=== PATIENT | female | born 1980 | race Caucasian/White ===

== ENCOUNTER 2024-03-27 05:23 | Emergency (ER) | payer MEDICAID, SELFPAY ==
[2024-03-27 05:23] VITALS: BMI 22.6
[2024-03-27 05:45] VITALS: BP 135/86; PULSE 97; RESP 18; TEMP 36.8; O2SAT 100
--- NOTE | 2024-03-27 06:16 | EDNOTE_ITS ---
Upper Respiratory Inf. RME/HPI General Chief Complaint: Flu Like Symptoms Stated Complaint: COUGHING Time Seen by Provider: 03/27/24 05:27 Arrival date/time: 03/27/24 05:23 43-year-old female presents the emergency department complains of cough, congestion and yellow phlegm ongoing for the last 2 days patient reports no chest pain or shortness of breath patient ports no headache dizziness weakness Limitations: no limitations Related Data Previous Rx's ?Medication ?Instructions ?Recorded ibuprofen 600 mg tablet 600 mg PO TID #20 tabs 11/24/17 ibuprofen 600 mg tablet 600 mg PO Q8H PRN pain #30 tabs 07/28/21 azithromycin 500 mg tablet See Rx Instructions PO .COMPLEX #6 03/27/24 tabs benzonatate 100 mg capsule 100 mg PO TID #14 caps 03/27/24 ibuprofen 600 mg tablet 600 mg PO Q6H #30 tabs 03/27/24 Allergies Allergy/AdvReac Type Severity Reaction Status Date / Time No Known Allergies Allergy Verified 07/28/21 12:02 Review of Systems Review of Systems Systems Reviewed: All systems reviewed, normal except as documented Constitutional Constitutional: Reports system reviewed and no additional complaints, except as documented, Denies fever(s) and Denies headache(s) Eyes Eyes: Reports system reviewed and no additional complaints, except as documented and Denies blurry vision ENT Ears, Nose, Mouth, and Throat: Reports system reviewed and no additional complaints, except as documented, Denies headache(s), Reports nasal congestion and Reports nasal discharge Cardiovascular Cardiovascular: Reports system reviewed and no additional complaints, except as documented, Denies chest pain and Denies dyspnea Respiratory Respiratory: Reports system reviewed and no additional complaints, except as documented, Denies chest congestion, Reports cough and Denies dyspnea Gastrointestinal Gastrointestinal: Reports system reviewed and no additional complaints, except as documented and Denies abdominal pain Integumentary/Breasts Skin/Breast: Reports system reviewed and no additional complaints, except as documented and Denies rash Neurologic Neurologic: Reports system reviewed and no additional complaints, except as documented, Reports as per HPI and Denies headache(s) Past Medical History Past Medical History NEUROLOGIC: Negative Neurological Disorders CARDIAC: Negative Cardiac Disorders ED Exam General Limitations: Present no limitations General appearance: Present alert and in no apparent distress Head Head exam: Present atraumatic, normocephalic and normal inspection Eye Eye exam: Present normal appearance, PERRL and EOMI; Absent conjunctival injection ENT ENT exam: Present normal exam, normal oropharynx and mucous membranes moist Neck Neck exam: Present normal inspection, full ROM and trachea midline Chest Chest inspection: Present normal inspection and symmetric chest wall rise Respiratory Respiratory exam: Present normal lung sounds bilaterally; Absent respiratory distress, wheezes, stridor or accessory muscle use Cardiovascular Cardiovascular exam: Present regular rate, normal rhythm and normal heart sounds Abdominal Exam Abdominal exam: Present soft and normal bowel sounds; Absent distention, tenderness, guarding, rebound or rigidity Extremities Exam Extremities exam: Present normal inspection and full ROM Back Exam Back exam: Present normal inspection and full ROM Neurological Exam Neurological exam: Present alert, oriented X3 and CN II-XII intact Psychiatric Psychiatric exam: Present normal affect and normal mood Skin Skin exam: Present warm, dry, intact and normal color Course Quality Measures none Orders Category Date Time Status Bedside COVID-19 Antigen Test NOW Care 03/27/24 05:26 Completed Bedside Influenza A&B Antigen Test NOW Care 03/27/24 05:27 Completed Vital Signs Vital signs: Vital Signs Temperature 98.2 F 03/27/24 05:45 Pulse Rate 97 03/27/24 05:45 Respiratory Rate 18 03/27/24 05:45 Blood Pressure 135/86 H 03/27/24 05:45 Pulse Oximetry (%) 100 03/27/24 05:45 Oxygen Delivery Method Room Air 03/27/24 05:45 O2 saturation 100% room air within normal limits Upper Respiratory Infection MDM Narrative MDM Narrative:: 43-year-old female presents the emergency department complains of cough, congestion and yellow phlegm ongoing for the last 2 days patient reports no chest pain or shortness of breath patient ports no headache dizziness weakness On exam patient well-appearing patient does not appear ill or toxic lungs are clear to auscultation Symptoms are consistent with URI Patient checked for flu and COVID both of which are negative Patient discharged home in no distress to follow-up with primary care doctor in the next 24 to 48 hours and for any worsening symptoms to return to the ER immediately Patient data External records reviewed:: [facility] previous records Clinical information provided by:: patient Social determinants that could affect healthcare access:: none Patient has the following chronic illnesses:: None How is presenting disease/condition affected by chronic disease/condition?: no chronic disease Evaluation data The following diagnostics were reviewed and interpreted by me:: lab results Lab and/or radiology exams considered but not ordered:: Labs obtained Interpretation Summary: Reviewed by me Medications / Prescriptions Medications or Prescriptions considered but not ordered:: Given Medication administrations:: Given Consultations Consultation(s) initiated? (list below): No Diagnosis Upper Respiratory Differential Diagnosis: upper respiratory infection, sinusitis, viral infection and pharyngitis Most likely diagnosis given after review of the tests above:: URI Admission Indicated Admission indicated?: not indicated Admission Request Was there a request for admission?: No Disposition Plan Disposition Plan: Discharge Discharge Attestation Discharge Attestation: The patient and all family members were given an opportunity to ask questions and understood the discharge instructions. Discharge instructions specifically effects, indications for sooner follow up or return to the emergency department, and the expected course of current diagnosis. Patient condition: Stable Discharge Plan Plan Patient Disposition: HOME (Self Care) Disposition Comment: Stable Prescriptions/Referrals Prescriptions/Med Rec: New benzonatate 100 mg capsule 100 mg PO TID Qty: 14 0RF ibuprofen 600 mg tablet 600 mg PO Q6H Qty: 30 0RF azithromycin 500 mg tablet See Rx Instructions .ROUTE .COMPLEX Qty: 6 0RF Rx Instructions: take 500 mg today (day 1), then 250 mg for 4 days (days 2-5) No Action ibuprofen 600 mg tablet 600 mg PO TID Qty: 20 0RF ibuprofen 600 mg tablet 600 mg PO Q8H PRN (Reason: pain) Qty: 30 0RF Referrals: Rigoberto Lindsay MD [Primary Care Provider] - 03/28/24 Problem List Clinical Impression: URI (upper respiratory infection) Patient/Caregiver Discharge Instructions Education Materials: ED URI, Viral, No Abx (Adult) Additional Instructions: Please follow up with your primary care doctor in the next 24-48hrs for any worsening symptoms return here immediately Print Language: Bhutanese Stand Alone Forms: Edwige Award Info., Patient Portal Info Letter PA/NUCLEAR SUPERVISING OPERATOR Supervising Physician PA/LANI Supervising Physician: Dr. oliver
== END 2024-03-27 06:25 | disposition home or self-care (01) ==
PROVIDERS: Emergency Provider Emergency Medicine; PCP Family Medicine
DX: J06.9 Acute upper respiratory infection, unspecified (principal)
CPT/HCPCS: 87400; 87811; 99283